=== PATIENT | male | born 1965 | race Caucasian/White ===

== ENCOUNTER 2024-01-01 19:23 | Observation (INO) | payer MEDICARE, OTHER ==
--- NOTE | 2024-01-01 19:37 | ED ---
General Adult HPI - General Chief complaint: Overdose Stated complaint: Mental Health Time Seen by Provider: 01/01/24 19:28 Source: patient, RN/MD, RN notes reviewed Mode of arrival: EMS Limitations: no limitations - History of Present Illness Initial comments: Patient is a 58-year-old male presenting to the emergency department with Ambien overdose. Patient states within the past hour he took around 10 Ambien. Patient states these are 5 mg Ambien and does have this bottle with him. Patient states he does not feel the effects have started kicking in on him yet. Patient admits to being depressed and taking extra medications in order to harm himself. No homicidal thoughts. No hallucinations. No new physical complaints. Patient denies alcohol use. - Related Data Home Medications Medication Instructions Recorded Confirmed Esomeprazole Magnesium [NexIUM] 40 mg PO DAILY 01/01/24 01/01/24 FLUoxetine HCL [PROzac] 40 mg PO DAILY 01/01/24 01/01/24 HYDROcodone/APAP 5-325MG [Emery 1 tab PO TID PRN 01/01/24 01/01/24 5-325] Ibuprofen [Motrin] 800 mg PO BID PRN 01/01/24 01/01/24 Nicotine Gum (Polacrilex) 2 mg BUCCAL Q2H PRN 01/01/24 01/01/24 [Nicorette] OLANZapine [ZyPREXA] 10 mg PO HS 01/01/24 01/01/24 OXcarbazepine [Trileptal] 300 mg PO BID 01/01/24 01/01/24 Prazosin [Minipress] 3 mg PO HS 01/01/24 01/01/24 Zolpidem Tartrate [Ambien] 5 mg PO HS 01/01/24 01/01/24 buPROPion XL [Wellbutrin XL] 150 mg PO DAILY 01/01/24 01/01/24 lisinopriL [Zestril] 10 mg PO DAILY 01/01/24 01/01/24 Allergies Allergy/AdvReac Type Severity Reaction Status Date / Time butorphanol [From Stadol] Allergy Confusion Verified 01/01/24 20:04 ketorolac [From Toradol] Allergy Unknown Verified 01/01/24 20:04 levofloxacin [From Levaquin] Allergy Vomiting Verified 01/01/24 20:04 Sulfa (Sulfonamide Allergy Nausea Verified 01/01/24 20:04 Antibiotics) Review of Systems ROS Statement: Those systems with pertinent positive or pertinent negative responses have been documented in the HPI. ROS Other: All systems not noted in ROS Statement are negative. Constitutional: Denies: fever Eyes: Denies: eye pain ENT: Denies: ear pain Respiratory: Denies: cough, dyspnea Cardiovascular: Denies: chest pain Endocrine: Denies: fatigue Gastrointestinal: Denies: nausea Genitourinary: Denies: dysuria Psychiatric: Reports: depression, suicidal thoughts. Denies: auditory hallucinations, visual hallucinations, homicidal thoughts Past Medical History Past Medical History: Cancer, COPD, Hypertension Additional Past Medical History / Comment(s): Bladder CA 2011,prostate CA 2010 Past Surgical History: Prostate Surgery Past Psychological History: Bipolar, Depression, PTSD Smoking Status: Current every day smoker Past Alcohol Use History: None Reported Past Drug Use History: Methamphetamine General Exam Limitations: no limitations General appearance: alert, in no apparent distress Head exam: Present: normocephalic Eye exam: Present: normal appearance, PERRL, EOMI, nystagmus ENT exam: Present: normal oropharynx Respiratory exam: Present: normal lung sounds bilaterally Cardiovascular Exam: Present: regular rate, normal rhythm GI/Abdominal exam: Present: soft. Absent: tenderness Extremities exam: Present: normal inspection Neurological exam: Present: alert, oriented X3, CN II-XII intact. Absent: motor sensory deficit Psychiatric exam: Present: flat affect Skin exam: Present: normal color Course Vital Signs 01/01/24 19:24 Temperature 98.8 F Pulse Rate 102 H Respiratory 18 Rate Blood Pressure 126/38 O2 Sat by Pulse 95 Oximetry EKG Findings - EKG Results: EKG: interpreted by ERMD, sinus rhythm, normal axis, normal QRS, normal ST/T Medical Decision Making - Medical Decision Making Was pt. sent in by a medical professional or institution (, PA, CHURCH COMMUNICATIONS ADMINISTRATOR, urgent care, hospital, or senior care...) When possible be specific @ -No Did you speak to anyone other than the patient for history (EMS, parent, family, police, friend...)? What history was obtained from this source @ -EMS Did you review nursing and triage notes (agree or disagree)? Why? @ -I reviewed and agree with nursing and triage notes Were old charts reviewed (outside hosp., previous admission, EMS record, old EKG, old radiological studies, urgent care reports/EKG's, senior care records)? Report findings @ -No old charts were reviewed Differential Diagnosis (chest pain, altered mental status, abdominal pain women, abdominal pain men, vaginal bleeding, weakness, fever, dyspnea, syncope, headache, dizziness, GI bleed, back pain, seizure, CVA, palpatations, mental health, musculoskeletal)? @ -Differential Mental Health Depression, anxiety, bipolar, psychosis, schizophrenia, borderline personality, situational depression, adjustment disorder, behavioral disorder, brain tumor, malingering, substance abuse, encephalopathy, medication reaction, dementia, hypothyroidism, degenerative neurologic disorder, lupus.... This is not meant to be all-inclusive list EKG interpreted by me (3pts min.). @ -As above X-rays interpreted by me (1pt min.). @ -None done CT interpreted by me (1pt min.). @ -None done U/S interpreted by me (1pt. min.). @ -None done What testing was considered but not performed or refused? (CT, X-rays, U/S, labs)? Why? @ -None What meds were considered but not given or refused? Why? @ -None Did you discuss the management of the patient with other professionals (professionals i.e. , PA, CHUR[employer] COMMUNICATIONS ADMINISTRATOR, lab, RT, psych nurse, family welfare social work professor, recoating machine operator, teacher, real estate officer, caser up)? Give summary @ -Practitioner Kaleigh covering Dr. Araujo, who will admit covering With Was smoking cessation discussed for >3mins.? @ -No Was critical care preformed (if so, how long)? @ -No Were there social determinants of health that impacted care today? How? (Homelessness, low income, unemployed, alcoholism, drug addiction, transportation, low edu. Level, literacy, decrease access to med. care, retirement, rehab)? @ -No Was there de-escalation of care discussed even if they declined (Discuss DNR or withdrawal of care, Hospice)? DNR status @ -No What co-morbidities impacted this encounter? (DM, HTN, Smoking, COPD, CAD, Cancer, CVA, ARF, Chemo, Hep., AIDS, mental health diagnosis, sleep apnea, morbid obesity)? @ -None Was patient admitted / discharged? Hospital course, mention meds given and route, prescriptions, significant lab abnormalities, going to OR and other pertinent info. @ -Patient presents with Ambien overdose. Patient has nystagmus. On reevaluation continue nystagmus. Patient is feeling drowsy. Patient will be held for observation to the night pending psychiatric consult. Undiagnosed new problem with uncertain prognosis? @ -No Drug Therapy requiring intensive monitoring for toxicity (Heparin, Nitro, Insulin, Cardizem)? @ -No Were any procedures done? @ -No Diagnosis/symptom? @ -Ambien overdose Acute, or Chronic, or Acute on Chronic? @ -Acute Uncomplicated (without systemic symptoms) or Complicated (systemic symptoms)? @ -Default Side effects of treatment? @ -No Exacerbation, Progression, or Severe Exacerbation? @ -No Poses a threat to life or bodily function? How? (Chest pain, USA, CT, pneumonia, PE, COPD, DKA, ARF, appy, cholecystitis, CVA, Diverticulitis, Homicidal, Suicidal, threat to staff... and all critical care pts) @ -No - Lab Data Result diagrams: 01/01/24 19:37 Lab Results 01/01/24 Range/Units 19:37 Sodium 138 (137-145) mmol/L Potassium 4.0 (3.5-5.1) mmol/L Chloride 105 (98-107) mmol/L Carbon Dioxide 24 (22-30) mmol/L Anion Gap 9 mmol/L BUN 17 (9-20) mg/dL Creatinine 0.85 (0.66-1.25) mg/dL Est GFR (CKD-EPI)AfAm >90 (>60 ml/min/1.73 sqM) Est GFR (CKD-EPI)NonAf >90 (>60 ml/min/1.73 sqM) Glucose 81 (74-99) mg/dL Calcium 9.2 (8.4-10.2) mg/dL Total Bilirubin 0.6 (0.2-1.3) mg/dL AST 23 (17-59) U/L ALT 17 (4-49) U/L Alkaline Phosphatase 62 (38-126) U/L Total Protein 7.0 (6.3-8.2) g/dL Albumin 4.6 (3.5-5.0) g/dL Salicylates <1.0 mg/dL Acetaminophen <10.0 ug/mL Serum Alcohol <10 mg/dL Disposition Clinical Impression: Intentional overdose Disposition: ADMITTED IP TO THIS HOSP Is patient prescribed a controlled substance at d/c from ED?: No Referrals: Ronnie Miranda MD [Primary Care Provider] - 1-2 days Time of Disposition: 20:54
[2024-01-01 20:08] LABS: HGB 16.8 gm/dL (13.0-17.5); MCH 30.1 pg (25.0-35.0); MCHC 33.6 g/dL (31.0-37.0); MCV 89.6 fL (80.0-100.0); Mean Platelet Volume 6.8; Platelet Count 322 k/uL (150-450); RBC 5.58 m/uL (4.30-5.90); RDW 12.8 % (11.5-15.5); WBC 13.5 k/uL (3.8-10.6)
[2024-01-01 20:10] LABS: ALT 17 U/L (4-49); AST 23 U/L (17-59); Acetaminophen <10.0 ug/mL; African American GFR (CKD) >90 (>60 ml/min/1.73 sqM); Albumin 4.6 g/dL (3.5-5.0); Alcohol <10 mg/dL; Alkaline Phosphatase 62 U/L (38-126); Anion Gap 9 mmol/L; Blood Urea Nitrogen 17 mg/dL (9-20); Calcium 9.2 mg/dL (8.4-10.2); Carbon Dioxide 24 mmol/L (22-30); Chloride 105 mmol/L (98-107); Glucose 81 mg/dL (74-99); Non-African American GFR(CKD) >90 (>60 ml/min/1.73 sqM); Salicylate <1.0 mg/dL; Sodium 138 mmol/L (137-145); Total Bilirubin 0.6 mg/dL (0.2-1.3)
[2024-01-01] MEDS ORDERED: IBUPROFEN 800 MG TAB PO PRN (20:51)
[2024-01-01] MEDS ORDERED: NICOTINE GUM (POLACRILEX) 2 MG GUM BUCCAL PRN (20:51)
[2024-01-01] MEDS ORDERED: NALOXONE 0.4 MG/ML 1 ML VIAL IV PRN (20:54)
[2024-01-01 21:23] LABS: Basophils # (M) 0.14 k/uL (0-0.2); Eosinophils # (M) 0.14 k/uL (0-0.7); Monocytes # (M) 0.41 k/uL (0-1.0); Neutrophils # (M) 10.13 k/uL (1.3-7.7); Neutrophils % (M) 75 %; Nucleated Red Blood Cells 0 /100 WBC (0-0); Total Cells Counted 100
[2024-01-01 21:24] LABS: RBC Morphology Normal
[2024-01-01] MEDS: OLANZapine 10 MG TAB PO SCH (21:29)
[2024-01-01] MEDS: PRAZOSIN 1 MG CAP PO SCH (21:29)
[2024-01-01] MEDS: OXcarbazepine 300 MG TAB PO SCH (21:29)
[2024-01-01 22:09] LABS: Amphetamine Screen,Urine Not Detected (NotDetected); Barbiturate Screen,Urine Not Detected (NotDetected); Benzodiazepines Screen,Urine Detected (NotDetected); Cocaine Screen,Urine Not Detected (NotDetected); Methadone Screen, Urine Not Detected (NotDetected); Opiate Screen,Urine Detected (NotDetected); Oxycodone Screen, Urine Not Detected (NotDetected); Phencyclidine Screen,Urine Not Detected (NotDetected); Tricyclic Antidepressant,Urine Not Detected (NotDetected); Urn Cannabinoid Scrn Not Detected (NotDetected)
[2024-01-02] MEDS: buPROPion XL 150 MG TAB.ER.24H PO SCH (09:55)
[2024-01-02] MEDS: FLUoxetine HCL 20 MG CAP PO SCH (09:55)
[2024-01-02] MEDS: PANTOPRAZOLE 40 MG TABLET PO SCH (09:55)
[2024-01-02] MEDS: lisinopriL 10 MG TAB PO SCH (09:56)
--- NOTE | 2024-01-02 13:30 | P.CN ---
Psychiatric Consult - . Consult date: 01/02/24 Consult:: 01/02/24 12:57 IDENTIFYING DATA: This patient is a 58-year-old male, currently , unemployed collecting Social Security disability lives in an apartment. No kids. REASON FOR REFERRAL: Psychiatry was consulted for overdose of medications HISTORY OF PRESENT ILLNESS: The patient presented to the hospital initially on 12/31 to the ER after an Ambien overdose. Patient apparently took 10 tablets of Ambien at once in a suicide attempt, was endorsing that he was depressed and admitted to it being a suicide attempt. Urine drug screen is positive for opiates and benzodiazepines. Patient was seen laying in the bed and agreeable to speak to selling underwriter. He had a one-to-one sitter at his side. Patient claims that he has been feeling more depressed for "months" and states that he has a history of bipolar disorder. He also claims that he is on disability. He states that he has been living alone and feels very "lonely" and also states that he is feeling bored, endorses elevated anxiety at this time. He was fairly concrete, evasive about his condition. States that the overdose was a suicide attempt and claims that after he took it he laid down and his cousin called him and he told him what he did and then the cousin called EMS to bring him to the hospital. Patient denies any paranoia at this time, denies any problems with sleep states that his appetite is on and off. At this time patient denies any current suicidal or homical ideations, intent or plan. Patient denies any auditory, visual hallucinations and denies any paranoia or delusions. Patients admits to using cigarettes only, denies any other recreational drug use. PAST PSYCHIATRIC HISTORY: Patient has a a history of reported bipolar disorder. He claims that he is currently on Prozac, Zyprexa, Trileptal, Minipress, Wellbutrin, Ambien. He states that he was psychiatrically hospitalized in [place] about a year ago. He currently follows up with Dr. Steiner at [facility]. He claims that he overdosed on medications about a year ago. Past Medical History: Cancer, COPD, Hypertension Additional Past Medical History / Comment(s): Bladder CA 2011,prostate CA 2010 Past Surgical History: Prostate Surgery Past Psychological History: Bipolar, Depression, PTSD Smoking Status: Current every day smoker Past Alcohol Use History: None Reported Past Drug Use History: Methamphetamine ALLERGIES: as per EMR. CHEMICAL DEPENDENCY HISTORY: as per HPI. FAMILY PSYCHIATRIC/SUBSTANCE USE HISTORY: Claims that his mother has depression and anxiety SOCIAL HISTORY: Patient was born and raised in [place], claims that he was previously living in [place] and recently moved up to [place]. States that he is currently on SSD, he is unemployed, he has no kids, he lives in an apartment alone. 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 Claims that he was in correction and also detention in the past for drug-related charges. MENTAL STATUS EXAM: General Appearance: Patient appears to be have several tattoos, stated age is alert, evasive and guarded. Patient appears to have fair hygiene and grooming wearing hospital gown with fair eye contact. Behavior: Patient is calmly lying in bed without any agitated behavior. Evasive. Guarded. Speech: Patient's speech is fluent and nonpressured. [place] Mood/Affect: Patient reports their mood is "depressed and anxious", affect is congruent Suicidality/Homicidality: Patient denies having any suicidal or homicidal ideation intent or plan. Perceptions: Patient denies any visual hallucinations and denies any auditory hallucinations Though content/process: There is no evidence of any delusional thought content a nd thought process is linear and goal-directed. Evasive, minimizing Memory and concentration: AOX3, grossly intact for the purposes of this session. Can spell "WORLD" backwards Judgment and insight: Poor IMPRESSIONS: Depressive disorder unspecified, rule out bipolar depression Suicide attempt by overdose of psychotropic medications Nicotine dependence PLAN: -At this time patient DOES meet criteria for inpatient psychiatric admission. -Would recommend the following medication changes/additions: Continue with current medications as prescribed -Continue 1:1 sitter for safety -Cannot leave AMA at this time. Patient will need a petition and certification if attempting to leave AMA. -When medically stable, patient is eligible for transfer to a psych bed when available. -Communicated plan to patient's nurse -Psychiatry will sign off at this time -Please contact with any questions. 01/02/24 13:25
[2024-01-02] MEDS: HYDROcodone/APAP 5-325MG 1 EACH TAB PO PRN (22:50)
[2024-01-02] MEDS: ONDANSETRON 4 MG/2 ML VIAL IVP PRN (22:50)
--- NOTE | 2024-01-03 00:36 | HP ---
HISTORY AND PHYSICAL CHIEF COMPLAINT: Ambien overdose. HISTORY OF PRESENT ILLNESS: This is first known admission for this 58-year-old white male. He became depressed and was contemplating suicide and overdosed on Ambien. REVIEW OF SYSTEMS: At the present time, he has no complaints. He has had no headaches, shortness of breath, abdominal pain, nausea, etc. PAST MEDICAL HISTORY, FAMILY HISTORY, AND PERSONAL HISTORY: Reveal that he is being treated for hypertension, depression, and COPD. MEDICATIONS: 1. Lisinopril 10 mg once a day. 2. Ibuprofen 800 mg q.i.d. p.r.n. 3. Oxcarbazepine 300 mg once a day. 4. Bupropion 150 twice a day. 5. Prozac 40 mg once a day. 6. Vicodin p.r.n. 7. Zyprexa 10 mg h.s. 8. Prazosin 2 mg h.s. 9. Nexium. SOCIAL HISTORY: He does continue to smoke, but he does not drink. PHYSICAL EXAMINATION: VITAL SIGNS: Normal. HEENT: Head, ears, eyes, nose, mouth, and throat are normal. NECK: Veins are not distended. CHEST: Clear. CARDIAC: Normal. ABDOMEN: Soft and nontender. EXTREMITIES: Normal. NEUROLOGIC: He is intact, but lethargic. DIAGNOSES: He is admitted to the hospital with diagnoses, 1. Ambien overdose. 2. Depression. 3. History of hypertension. 4. Gastroesophageal reflux disease. PLAN: 1. Bedrest. 2. IV fluids. 3. Suicide precautions. 4. Psychiatry consult. MMSHAUN / BRENDA: [id number] /
--- NOTE | 2024-01-03 04:18 | PN ---
PROGRESS NOTE DATE OF SERVICE: 01/02/2024 CHIEF COMPLAINT: Depression, suicide attempt, and Ambien overdose. HISTORY OF PRESENT ILLNESS: This gentleman is still slightly groggy and awaits a bed after which he will be seen in suicide precautions by Psychiatry. PHYSICAL EXAMINATION: VITAL SIGNS: Normal. CHEST: Clear. CARDIAC: Normal. IMPRESSION: Major depression with Ambien overdose. PLAN: Suicide precautions and psych consult. MMODL / IJN: [id number] /
[2024-01-05 02:35] VITALS: TEMP 97.7
[2024-01-05 08:11] VITALS: BP 122/83; PULSE 63; RESP 18
--- NOTE | 2024-01-06 00:42 | DS ---
DISCHARGE SUMMARY CHIEF COMPLAINT: Ambien overdose. HISTORY OF PRESENT ILLNESS AND PHYSICAL EXAMINATION: Details of this man's history and physical can be found in the initial workup. LABORATORY STUDIES: While he is in the hospital, he had laboratory studies, details of which can be found in the laboratory section of his chart. COURSE IN THE HOSPITAL: After admission, he was placed on bedrest, started intravenous fluids and suicide precautions. He was seen by Psychiatry. Once he was stable, they felt he should be transferred to the inpatient psych unit. This was done on the . FINAL DIAGNOSES: 1. Ambien overdose. 2. Major depression with suicidal thoughts. OPERATIONS: None. CONSULTATIONS: Psychiatry. MMODL / IJN: [id number] /
--- NOTE | 2024-01-06 01:49 | PN ---
PROGRESS NOTE DATE OF SERVICE: 01/03/2024 CHIEF COMPLAINT: Major depression and suicidal attempt by Ambien overdose. HISTORY OF PRESENT ILLNESS: This gentleman is awake and alert and stable. He is being followed by Psychiatry. PHYSICAL EXAMINATION: CHEST: Clear. CARDIAC: Normal. ABDOMEN: Soft, nontender. IMPRESSION: Major depression with suicidal attempt. PLAN: No change in program and await recommendations from Psychiatry. MMODL / IJN: [id number] /
--- NOTE | 2024-01-06 01:57 | PN ---
PROGRESS NOTE DATE OF SERVICE: 01/04/2024 CHIEF COMPLAINT: Major depression. HISTORY OF PRESENT ILLNESS: This gentleman is doing well and it was felt that he could be discharged, but Psychiatry feels that he should be moved to inpatient unit and this will be done. PHYSICAL EXAMINATION: VITAL SIGNS: Normal. GENERAL: He is awake and alert. CHEST: Clear. CARDIAC: Normal. IMPRESSION: Major depression with suicide attempt by alcohol overdose. PLAN: Cancel discharge and probably move to the psych unit tomorrow. MMODL / IJN: [id number] /
== END 2024-01-05 15:53 ==
LOC: EC 19:23 → 6NMEDSUR 20:55 → 4SSUR 01-02 05:07
PROVIDERS: ADMIT Family Medicine; ATTEND Family Medicine
DX: T42.6X2A Poisoning by other antiepileptic and sedative-hypnotic drugs, intentional self-harm, initial encounter (principal); F31.9 Bipolar disorder, unspecified; F41.9 Anxiety disorder, unspecified; H55.00 Unspecified nystagmus; I10 Essential (primary) hypertension; J44.9 Chronic obstructive pulmonary disease, unspecified; K21.9 Gastro-esophageal reflux disease without esophagitis; F17.210 Nicotine dependence, cigarettes, uncomplicated; Z79.899 Other long term (current) drug therapy; Z88.1 Allergy status to other antibiotic agents; Z88.2 Allergy status to sulfonamides; Z88.5 Allergy status to narcotic agent; Z91.51 Personal history of suicidal behavior; Z60.2 Problems related to living alone
CPT/HCPCS: 96376 ×2; 96374; 82075; 99285; 36415; 93005; 80053; 80183; 85025; 80306; 80143; 87635; 80179; G0378 ×6; G0480; J2405 ×3; 80320

== ENCOUNTER 2024-01-05 12:42 | Inpatient (IN) | payer MEDICARE, MEDICAID ==
[2024-01-05] MEDS ORDERED: ONDANSETRON ODT 4 MG TAB PO PRN (13:37)
[2024-01-05] MEDS ORDERED: MAGNESIUM HYDROXIDE 2,400 MG/30 ML CUP PO PRN (13:38)
[2024-01-05] MEDS ORDERED: haloperidoL 5 MG TAB PO PRN (13:38)
[2024-01-05] MEDS ORDERED: MAG HYDROX/AL HYDROX/SIMETH 355 ML BOTTLE PO PRN (13:38)
[2024-01-05] MEDS ORDERED: LORazepam 2 MG/ML INJ IM PRN (13:38)
[2024-01-05] MEDS ORDERED: HALOPERIDOL LACTATE 5 MG/ML 1 ML VIAL IM PRN (13:38)
[2024-01-05] MEDS ORDERED: NICOTINE GUM (POLACRILEX) 2 MG GUM BUCCAL PRN (13:41)
[2024-01-05] MEDS: OLANZapine 10 MG TAB PO SCH (20:02)
[2024-01-05] MEDS: PRAZOSIN 1 MG CAP PO SCH (20:02)
[2024-01-05] MEDS: HYDROcodone/APAP 5-325MG 1 EACH TAB PO PRN (20:03)
[2024-01-06 08:26] LABS: ALT 15 U/L (4-49); AST 23 U/L (17-59); African American GFR (CKD) >90 (>60 ml/min/1.73 sqM); Albumin 4.4 g/dL (3.5-5.0); Alkaline Phosphatase 56 U/L (38-126); Anion Gap 5 mmol/L; Blood Urea Nitrogen 15 mg/dL (9-20); Calcium 9.7 mg/dL (8.4-10.2); Carbon Dioxide 31 mmol/L (22-30); Chloride 97 mmol/L (98-107); Glucose 94 mg/dL (74-99); HGB 15.5 gm/dL (13.0-17.5); MCH 29.9 pg (25.0-35.0); MCHC 32.9 g/dL (31.0-37.0); MCV 90.9 fL (80.0-100.0); Mean Platelet Volume 6.4; Non-African American GFR(CKD) 81 (>60 ml/min/1.73 sqM); Platelet Count 253 k/uL (150-450); Potassium 4.4 mmol/L (3.5-5.1); RBC 5.17 m/uL (4.30-5.90); RDW 12.3 % (11.5-15.5); Sodium 133 mmol/L (137-145); Total Bilirubin 0.8 mg/dL (0.2-1.3); Total Protein 6.6 g/dL (6.3-8.2); WBC 7.8 k/uL (3.8-10.6)
[2024-01-06] MEDS: PANTOPRAZOLE 40 MG TABLET PO SCH (08:31)
[2024-01-06] MEDS: FLUoxetine HCL 20 MG CAP PO SCH (08:31)
[2024-01-06] MEDS: lisinopriL 10 MG TAB PO SCH (08:31)
[2024-01-06] MEDS: PNEUMOCOCCAL VACC-PREVNAR-20 0.5 ML SYR IM ONE (09:45)
[2024-01-06 11:15] LABS: Chol/HDL Ratio 2.54 Ratio; LDL Cholesterol,Calculated 78.4 mg/dL (0.0-131.0)
[2024-01-06 11:47] LABS: Eosinophils # (M) 0.08 k/uL (0-0.7); Lymphocytes # (M) 1.64 k/uL (1.0-4.8); Monocytes # (M) 0.39 k/uL (0-1.0); Neutrophils # (M) 5.69 k/uL (1.3-7.7); Neutrophils % (M) 73 %; Nucleated Red Blood Cells 0 /100 WBC (0-0); Total Cells Counted 100
[2024-01-06 11:48] LABS: RBC Morphology Normal
--- NOTE | 2024-01-06 11:50 | P.HP ---
Psychiatric H&P - . H&P Date: 01/06/24 History & Physical: Allergies Allergy/AdvReac Type Severity Reaction Status Date / Time butorphanol from Stadol Allergy Confusion Verified 01/01/24 20:04 ketorolac from Toradol Allergy Unknown Verified 01/01/24 20:04 levofloxacin from Levaquin Allergy Vomiting Verified 01/01/24 20:04 Sulfa (Sulfonamide Allergy Nausea Verified 01/01/24 20:04 Antibiotics) Vital Signs Temp 95.9 F L 01/06/24 06:30 Pulse 107 H 01/06/24 08:30 Resp 16 01/06/24 06:30 BP 133/76 01/06/24 08:30 Pulse Ox 96 01/05/24 16:21 FiO2 Intake & Output 01/05/24 01/06/24 01/06/24 18:59 06:59 18:59 Weight 86.954 kg Laboratory Last Values WBC 7.8 k/uL (3.8-10.6) 01/06/24 07:51 RBC 5.17 m/uL (4.30-5.90) 01/06/24 07:51 Hgb 15.5 gm/dL (13.0-17.5) 01/06/24 07:51 Hct 47.0 % (39.0-53.0) 01/06/24 07:51 MCV 90.9 fL (80.0-100.0) 01/06/24 07:51 MCH 29.9 pg (25.0-35.0) 01/06/24 07:51 MCHC 32.9 g/dL (31.0-37.0) 01/06/24 07:51 RDW 12.3 % (11.5-15.5) 01/06/24 07:51 Plt Count 253 k/uL (150-450) 01/06/24 07:51 MPV 6.4 01/06/24 07:51 Sodium 133 mmol/L (137-145) L 01/06/24 07:51 Potassium 4.4 mmol/L (3.5-5.1) 01/06/24 07:51 Chloride 97 mmol/L (98-107) L 01/06/24 07:51 Carbon Dioxide 31 mmol/L (22-30) H 01/06/24 07:51 Anion Gap 5 mmol/L 01/06/24 07:51 BUN 15 mg/dL (9-20) 01/06/24 07:51 Creatinine 1.02 mg/dL (0.66-1.25) 01/06/24 07:51 Est GFR (CKD-EPI)AfAm >90 (>60 ml/min/1.73 sqM) 01/06/24 07:51 Est GFR (CKD-EPI)NonAf 81 (>60 ml/min/1.73 sqM) 01/06/24 07:51 Glucose 94 mg/dL (74-99) 01/06/24 07:51 Calcium 9.7 mg/dL (8.4-10.2) 01/06/24 07:51 Total Bilirubin 0.8 mg/dL (0.2-1.3) 01/06/24 07:51 AST 23 U/L (17-59) 01/06/24 07:51 ALT 15 U/L (4-49) 01/06/24 07:51 Alkaline Phosphatase 56 U/L (38-126) 01/06/24 07:51 Total Protein 6.6 g/dL (6.3-8.2) 01/06/24 07:51 Albumin 4.4 g/dL (3.5-5.0) 01/06/24 07:51 TSH 0.663 mIU/L (0.465-4.680) 01/06/24 07:51 01/06/24 09:01 IDENTIFYING DATA: Patient is a This patient is a 58-year-old male, currently , unemployed collecting Social Security disability lives in an apartment. No kids. HPI: The patient presented to the hospital initially on 12/31 to the ER after an Ambien overdose. Patient apparently took 10 tablets of Ambien at once in a suicide attempt, was endorsing that he was depressed and admitted to it being a suicide attempt. Urine drug screen is positive for opiates and benzodiazepines. Patient was seen as a consult on the medical floor. As per consult note by keno writer / runner, "Patient was seen laying in the bed and agreeable to speak to keno writer / runner. He had a one-to-one sitter at his side. Patient claims that he has been feeling more depressed for "months" and states that he has a history of bipolar disorder. He also claims that he is on disability. He states that he has been living alone and feels very "lonely" and also states that he is feeling bored, endorses elevated anxiety at this time. He was fairly concrete, evasive about his condition. States that the overdose was a suicide attempt and claims that after he took it he laid down and his cousin called him and he told him what he did and then the cousin called EMS to bring him to the hospital. Patient denies any paranoia at this time, denies any problems with sleep states that his appetite is on and off. At this time patient denies any current suicidal or homicidal ideations, intent or plan. Patient denies any auditory, visual hallucinations and denies any paranoia or delusions. Patients admits to using cigarettes only, denies any other recreational drug use." Upon todays assessment, patient states that he is somewhat better. He states that his sleep is not the greatest. continues to be fairly concrete and superficial about his treatment. was agreeable to have his meds adjusted. His mood is still not great, and he is not endorsing any anxiety. He states that his appetite is fair. At this time he is denying any suicidal or homicidal ideations intent or plan. Claims that the auditory hallucinations have been improving. Denies any visual hallucinations. PAST PSYCHIATRIC HISTORY: Patient has a a history of reported bipolar disorder. He claims that he is currently on Prozac, Zyprexa, Trileptal, Minipress, Wellbutrin, Ambien. He states that he was psychiatrically hospitalized in [place] about a year ago. He currently follows up with Dr. Steiner at [facility]. He claims that he overdosed on medications about a year ago. PMH:As per ER note ALLERGIES: as per EMR CHEMICAL DEPENDENCY HISTORY: as per HPI FAMILY PSYCHIATRIC/SUBSTANCE USE HISTORY: Claims that his mother has depression and anxiety SOCIAL HISTORY: Patient was born and raised in [place], claims that he was previously living in [place] and recently moved up to [place]. States that he is currently on SSD, he is unemployed, he has no kids, he lives in an apartment alone. 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 Claims that he was in nursing home and also detention in the past for drug-related charges. MENTAL STATUS EXAM: General Appearance: Patient appears to be have several tattoos, stated age is alert, evasive and guarded. Patient appears to have fair hygiene and grooming wearing his own clothes, with fair eye contact. Behavior: Patient is calmly lying in bed without any agitated behavior. Evasive. Guarded. Superficial Speech: Patient's speech is fluent and nonpressured. [place] Mood/Affect: Patient reports their mood is "depressed", affect is congruent Suicidality/Homicidality: Patient denies having any suicidal or homicidal ideation intent or plan. Perceptions: Patient denies any visual hallucinations and denies any auditory hallucinations Though content/process: There is no evidence of any delusional thought content and thought process is linear and goal-directed. Evasive, minimizing Memory and concentration: AOX3, grossly intact for the purposes of this session. Can spell "WORLD" backwards Judgment and insight: Poor IMPRESSIONS: bipolar disorder, depression Suicide attempt by overdose of psychotropic medications History of PTSD Nicotine dependence STRENGTHS/WEAKNESSES: strength is that patient is resilient. Weakness is that patient has poor judgment and is impulsive INTELLECT: average PLAN: -Patient is admitted under voluntary status to MHU for stabilization of psychiatric symptoms and safety. Patient has signed adult voluntary form and medication consent and is placed in patient's chart. -Medications : increase Prozac 60mg daily for mood and anxiety, Zyprexa 10mg po qhs for low mood/anxiety, minipress 3mg po qhs for nightmares -Ativan and Haldol PRN for agitation/aggression -Patient was informed of the risks, benefits and side effects of the medication and patient verbally consented to taking the medications. -Internal Medicine consult to perform medical evaluation and physical. -NRT -nicotine patch - on board for discharge planning. Encourage patient to participate in groups to work on coping skills. 01/06/24 11:33 01/06/24 11:48
[2024-01-06] MEDS: IBUPROFEN 800 MG TAB PO PRN (21:01)
[2024-01-06] MEDS: ACETAMINOPHEN TAB 325 MG TAB PO PRN (21:02)
--- NOTE | 2024-01-07 08:18 | P.PN ---
Subjective Progress Note Date: 01/07/24 Principal diagnosis: IMPRESSIONS: bipolar disorder, depression Suicide attempt by overdose of psychotropic medications History of PTSD Nicotine dependence atient Name: Mesfin Ge Date of : 1965 Patient Status: Inpatient Attending Provider: Negro Bartholomew Date: 01/07/24 Initialization Date: 01/06/24 09:01 Subjective data: The patient was seen chart was reviewed and case discussed with nursing staff Patient remains severely superficial and vague historian He states that everything is fine and that he is feeling a lot better He denies that he is having any problems or issues and that he is ready to go home anytime Patient is not very forthcoming and does not give much of any information Following information was reviewed in the chart which is included here for completeness: The patient presented to the hospital initially on 12/31 to the ER after an Ambien overdose. Patient apparently took 10 tablets of Ambien at once in a suicide attempt, was endorsing that he was depressed and admitted to it being a suicide attempt. Urine drug screen is positive for opiates and benzodiazepines . Patient was seen as a consult on the medical floor. Patient claims that he has been feeling more depressed for "months" and states that he has a history of bipolar disorder. He also claims that he is on disability. MENTAL STATUS EXAM: General Appearance: Patient appears to be have several tattoos, stated age is alert, evasive and guarded. Patient appears to have fair hygiene and grooming wearing his own clothes, Behavior: Patient is calmly lying in bed without any agitated behavior. Evasive. Guarded. Superficial Speech: Patient's speech is fluent and nonpressured. [place] Mood/Affect: Patient reports their mood is "good, affect is congruent Suicidality/Homicidality: Patient denies having any suicidal or homicidal ideation intent or plan. Perceptions: Patient denies any visual hallucinations and denies any auditory hallucinations Though content/process: There is no evidence of any delusional thought content and thought process is linear and goal-directed. Evasive, minimizing Memory and concentration: AOX3, grossly intact for the purposes of this session. Can spell "WORLD" backwards Judgment and insight: Poor IMPRESSIONS: bipolar disorder, depression Suicide attempt by overdose of psychotropic medications History of PTSD Nicotine dependence STRENGTHS/WEAKNESSES: strength is that patient is resilient. Weakness is that patient has poor judgment and is impulsive INTELLECT: average PLAN: Agree with Dr. bartholomew treatment plan -Patient is admitted under voluntary status to MHU for stabilization of psychiatric symptoms and safety. Patient has signed adult voluntary form and medication consent and is placed in patient's chart. -Medications : Prozac 60mg daily for mood and anxiety, Zyprexa 10mg po qhs for low mood/anxiety, minipress 3mg po qhs for nightmares -Ativan and Haldol PRN for agitation/aggression -Patient was informed of the risks, benefits and side effects of the medication and patient verbally consented to taking the medications. -Internal Medicine consult to perform medical evaluation and physical. -NRT -nicotine patch -SW on board for discharge planning. Encourage patient to participate in groups to work on coping skills. Miguel Dupont MD Objective - Vital Signs Vital signs: Vital Signs Temp 95.9 F L 01/06/24 06:30 Pulse 99 01/07/24 06:38 Resp 16 01/06/24 06:30 BP 120/82 01/07/24 06:38 Pulse Ox 96 01/05/24 16:21 FiO2 - Labs CBC & Chem 7: 01/06/24 07:51 01/06/24 07:51 Labs: Abnormal Lab Results - Last 24 Hours (Table) 01/06/24 Range/Units 07:51 Sodium 133 L (137-145) mmol/L Chloride 97 L (98-107) mmol/L Carbon Dioxide 31 H (22-30) mmol/L HDL Cholesterol 68.20 H (40.00-60.00) mg/dL
[2024-01-07] MEDS: FLUoxetine HCL 20 MG CAP PO SCH (08:33)
[2024-01-07 14:27] VITALS: BMI 25.9
[2024-01-07] MEDS: LORazepam 1 MG TAB PO PRN (22:43)
--- NOTE | 2024-01-08 09:10 | P.PN ---
Subjective Progress Note Date: 01/08/24 Principal diagnosis: IMPRESSIONS: bipolar disorder, depression Suicide attempt by overdose of psychotropic medications History of PTSD Nicotine dependence atient Name: Mesfin Ge Date of : 1965 Patient Status: Inpatient Attending Provider: Negro Bartholomew Date: 01/08/24 Initialization Date: 01/06/24 09:01 Subjective data: Today's interview was not much different than the previous day Patient has much difficulty building a rapport and remains amotivated with any verbalization or give any specific details He reports that he is living with his cousin and that he is planning to go back to stay with him And reports that things are better The patient was seen chart was reviewed and case discussed with nursing staff Patient remains severely superficial and vague historian He states that everything is fine and that he is feeling a lot better Patient is not very forthcoming and does not give much of any information Following information was reviewed in the chart which is included here for completeness: The patient presented to the hospital initially on 12/31 to the ER after an Ambien overdose. Patient apparently took 10 tablets of Ambien at once in a suicide attempt, was endorsing that he was depressed and admitted to it being a suicide attempt. Urine drug screen is positive for opiates and benzodiazepines . Patient was seen as a consult on the medical floor. Patient claims that he has been feeling more depressed for "months" and states that he has a history of bipolar disorder. He also claims that he is on disability. MENTAL STATUS EXAM: General Appearance: Patient appears to be have several tattoos, stated age is alert, evasive and guarded. Patient appears to have fair hygiene and grooming wearing his own clothes, Behavior: Patient is calmly lying in bed without any agitated behavior. Evasive. Guarded. Superficial Speech: Patient's speech is fluent and nonpressured. [place] Mood/Affect: Patient reports their mood is "good, affect is congruent Suicidality/Homicidality: Patient denies having any suicidal or homicidal ideation intent or plan. Perceptions: Patient denies any visual hallucinations and denies any auditory hallucinations Though content/process: There is no evidence of any delusional thought content and thought process is linear and goal-directed. Evasive, minimizing Memory and concentration: AOX3, grossly intact for the purposes of this session. Can spell "WORLD" backwards Judgment and insight: Poor IMPRESSIONS: bipolar disorder, depression Suicide attempt by overdose of psychotropic medications History of PTSD Nicotine dependence STRENGTHS/WEAKNESSES: strength is that patient is resilient. Weakness is that patient has poor judgment and is impulsive INTELLECT: average PLAN: Agree with Dr. bartholomew treatment plan -Patient is admitted under voluntary status to MHU for stabilization of psychiatric symptoms and safety. Patient has signed adult voluntary form and medication consent and is placed in patient's chart. -Medications : Prozac 60mg daily for mood and anxiety, Zyprexa 10mg po qhs for low mood/anxiety, minipress 3mg po qhs for nightmares -Ativan and Haldol PRN for agitation/aggression -Patient was informed of the risks, benefits and side effects of the medication and patient verbally consented to taking the medications. -Internal Medicine consult to perform medical evaluation and physical. -NRT -nicotine patch -SW on board for discharge planning. Encourage patient to participate in groups to work on coping skills. Miguel Dupont MD Objective - Vital Signs Vital signs: Vital Signs Temp 98.2 F 01/08/24 06:31 Pulse 58 L 01/08/24 06:31 Resp 18 01/08/24 06:31 BP 109/60 01/08/24 06:31 Pulse Ox 96 01/05/24 16:21 FiO2 Intake & Output 01/07/24 01/08/24 01/08/24 18:59 06:59 18:59 Weight 86.954 kg - Labs CBC & Chem 7: 01/06/24 07:51 01/06/24 07:51
--- NOTE | 2024-01-09 05:07 | HP ---
HISTORY AND PHYSICAL CHIEF COMPLAINTS: Depression, Ambien overdose, and suicide attempt. HISTORY OF PRESENT ILLNESS: This gentleman is transferred from medical floor for inpatient psych care for his suicidal overdose, major depression. Medically stable and alert and has no complaints. REVIEW OF SYSTEMS: He has no complaints or problems. Past medical history, family history, personal and social histories are all otherwise unremarkable. PHYSICAL EXAMINATION: VITAL SIGNS: Normal. HEENT: Head, ears, eyes, nose, mouth and throat are normal. CHEST: Clear. CARDIAC: Normal. ABDOMEN: Soft and nontender. EXTREMITIES: Normal. IMPRESSION: 1. Major depression. 2. Suicide attempt by Ambien overdose. RECOMMENDATIONS: None. MMODL / IJN: [id number] /
[2024-01-09] MEDS ORDERED: hydrOXYzine pamoate 25 MG CAP PO PRN (12:00)
--- NOTE | 2024-01-09 12:12 | P.PN ---
Progress Note - Text Progress Note Date: 01/09/24 Interval History: Patient was seen in his room, and was directable and agreeable to speak with leader writer in the office. Patient states that he is doing ok today. He states that he has been taking Ativan to help him sleep at night. [place]man told patient that he can not be discharged on Ativan, and discussed other options. Patient agreeable. At this time patient denies any suicidal or homicidal ideations, intent or plan. Patient denies any auditory, visual hallucinations and denies any paranoia or delusions. Patient denies any side effects from the medications and has been compliant with meds. MENTAL STATUS EXAM: General Appearance: Patient appears to be have several tattoos, stated age is alert, evasive and guarded. Patient appears to have fair hygiene and grooming wearing his own clothes, with fair eye contact. Behavior: Patient is calmly seated without any agitated behavior. mildly improving Speech: Patient's speech is fluent and nonpressured. [place], improving Mood/Affect: Patient reports their mood is "ok", affect is congruent improving Suicidality/Homicidality: Patient denies having any suicidal or homicidal ideation intent or plan. Perceptions: Patient denies any visual hallucinations and denies any auditory hallucinations Though content/process: There is no evidence of any delusional thought content and thought process is linear and goal-directed. Evasive, minimizing Memory and concentration: AOX3, grossly intact for the purposes of this session. Judgment and insight: Poor, mildly improving IMPRESSIONS: bipolar disorder, depression Suicide attempt by overdose of psychotropic medications History of PTSD Nicotine dependence PLAN: -Patient is admitted under voluntary status to MHU for stabilization of psychiatric symptoms and safety. -Medications : Prozac 60mg daily for mood and anxiety, increase Zyprexa 15mg po qhs for low mood/anxiety, minipress 3mg po qhs for nightmares, add visteral 50mg q8 hours prn for anxiety -Ativan and Haldol PRN for agitation/aggression -NRT -nicotine patch -SW on board for discharge planning. Encourage patient to participate in groups to work on coping skills. Discharge home tomorrow, if patient continues to improve
[2024-01-09] MEDS: OLANZapine 5 MG TAB PO SCH (20:38)
[2024-01-10 06:54] VITALS: RESP 17; TEMP 97.6
[2024-01-10 10:04] VITALS: BP 127/80; PULSE 106
--- NOTE | 2024-01-10 10:06 | P.DS ---
Providers Date of admission: 01/05/24 16:09 Expected date of discharge: 01/10/24 Attending physician: Negro Bartholomew MD Consults: 01/05/24 13:38 Consult Physician Routine Consulting Provider: Ronnie Miranda Consult Reason/Comments: H and P Do you want consulting provider notified?: Yes Primary care physician: Ronnie Miranda - Discharge Diagnosis(es) (1) Bipolar disorder with current episode depressed Current Visit: Yes Status: Acute Priority: High (2) Suicide attempt by drug overdose Current Visit: Yes Status: Acute Priority: High (3) History of posttraumatic stress disorder (PTSD) Current Visit: Yes Status: Acute Priority: Medium (4) Nicotine dependence Current Visit: Yes Status: Acute Priority: Low Hospital Course: Admission HPI: Admission note was completed by pattern chart writer "The patient presented to the hospital initially on 12/31 to the ER after an Ambien overdose. Patient apparently took 10 tablets of Ambien at once in a suicide attempt, was endorsing that he was depressed and admitted to it being a suicide attempt. Urine drug screen is positive for opiates and benzodiazepines. Patient was seen as a consult on the medical floor. As per consult note by pattern chart writer, "Patient was seen laying in the bed and agreeable to speak to pattern chart writer. He had a one-to-one sitter at his side. Patient claims that he has been feeling more depressed for "months" and states that he has a history of bipolar disorder. He also claims that he is on disability. He states that he has been living alone and feels very "lonely" and also states that he is feeling bored, endorses elevated anxiety at this time. He was fairly concrete, evasive about his condition. States that the overdose was a suicide attempt and claims that after he took it he laid down and his cousin called him and he told him what he did and then the cousin called EMS to bring him to the hospital. Patient denies any paranoia at this time, denies any problems with sleep states that his appetite is on and off. At this time patient denies any current suicidal or homicidal ideations, intent or plan. Patient denies any auditory, visual hallucinations and denies any paranoia or delusions. Patients admits to using cigarettes only, denies any other recreational drug use." Upon todays assessment, patient states that he is somewhat better. He states that his sleep is not the greatest. continues to be fairly concrete and superficial about his treatment. was agreeable to have his meds adjusted. His mood is still not great, and he is not endorsing any anxiety. He states that his appetite is fair. At this time he is denying any suicidal or homicidal ideations intent or plan. Claims that the auditory hallucinations have been improving. Denies any visual hallucinations." Hospital course: Upon admission to the unit patient was directable and agreeable to commence treatment and signed adult voluntary form. Patient was initially isolative however with time and treatment he eventually got along well with other patients on the unit and followed unit protocol. Patient was compliant with the medications and denied any side effects throughout hospital course. Patient was started on his home dose of Minipress 3 mg nightly for nightmares, Vistaril as needed for anxiety, Zyprexa was increased to 15 mg nightly for mood stabilization/insomnia, Prozac was increased to dose of 60 mg daily for mood/an xiety. Patient spoke of his stressors and engaged in therapy both group and individual. Patient was also seen by medical team for history and physical exam. Throughout the course of the hospitalization patient gradually improved with regards to mood, anxiety, depression, sleep and returned back to their baseline level of functioning. On the day of discharge patient denied any suicidal or homicidal ideations intent or plan denied any auditory or visual hallucinations. Patient endorsed wanting to live for his health, future and family. The patient denied any access to guns or weapons. Patient denied any paranoia and did not endorse any delusions. Patient does not have a significant history of substance abuse and was counseled on abstaining from all substances including alcohol and marijuana. Patient was also counseled on the medications and need for regular compliance and was encouraged to follow-up with their outpatient appointment for mental health and also for primary care. Patient denies any access to guns or weapons at home. Mental status exam: General Appearance: Patient appears to be stated age is alert, pleasant, and cooperative. Patient is in no acute distress and has improved hygiene and grooming Behavior: Patient is calmly seated without any agitated behavior. Cooperative today Speech: Patient's speech is fluent and nonpressured. Mood/Affect: Patient reports their mood is "better", affect is congruent Suicidality/Homicidality: Patient denies having any suicidal or homicidal ideation intent or plan. Perceptions: Patient denies any auditory or visual hallucinations. Though content/process: There is no evidence of any delusional thought content and thought process is linear and goal-directed. More future oriented Memory and concentration: AOX3, grossly intact for the purposes of this session. Can spell "WORLD" backwards correctly. Judgment and insight: Chronically poor, however has improved with guarded prognosis Impression: bipolar disorder, current episode depressed Suicide attempt by overdose of psychotropic medications History of PTSD Nicotine dependence Plan: -Continue with discharge today as patient has improved and stabilized ps ychiatrically and is not currently an imminent threat to himself and/or others. Patient will remain at chronically elevated risk for harm to self and/or others due to his impulsivity and mental illness. -Continue medications: Prozac 60 mg daily for mood/anxiety, Zyprexa 15 mg nightly for mood stabilization/insomnia, Vistaril 50 mg daily as needed for anxiety, Minipress 3 mg nightly for nightmares -Patient was counseled on the need for medication compliance and appropriate follow-up at mental health and also primary care for medical issues. Patient verbalized understanding and agreed. -Social work to help coordinate patient's discharge today back home. Social work also to arrange for patients follow up appointments for psychiatric care along with follow up with primary care provider. -Patient counseled on abstaining from recreational drugs and marijuana and alcohol. Was informed/educated on the adverse effects on their physical and mental health. Patient verbally agreed and understood. -Patient was instructed to return to the hospital or seek immediate medical care if their psychiatric or medical symptoms do worsen or reoccur. ] Allergies Allergy/AdvReac Type Severity Reaction Status Date / Time butorphanol from Stadol Allergy Confusion Verified 01/01/24 20:04 ketorolac from Toradol Allergy Unknown Verified 01/01/24 20:04 levofloxacin from Levaquin Allergy Vomiting Verified 01/01/24 20:04 Sulfa (Sulfonamide Allergy Nausea Verified 01/01/24 20:04 Antibiotics) Laboratory Results WBC 7.8 k/uL (3.8-10.6) 01/06/24 07:51 RBC 5.17 m/uL (4.30-5.90) 01/06/24 07:51 Hgb 15.5 gm/dL (13.0-17.5) 01/06/24 07:51 Hct 47.0 % (39.0-53.0) 01/06/24 07:51 MCV 90.9 fL (80.0-100.0) 01/06/24 07:51 MCH 29.9 pg (25.0-35.0) 01/06/24 07:51 MCHC 32.9 g/dL (31.0-37.0) 01/06/24 07:51 RDW 12.3 % (11.5-15.5) 01/06/24 07:51 Plt Count 253 k/uL (150-450) 01/06/24 07:51 MPV 6.4 01/06/24 07:51 Neutrophils % (Manual) 73 % 01/06/24 07:51 Lymphocytes % (Manual) 21 % 01/06/24 07:51 Monocytes % (Manual) 5 % 01/06/24 07:51 Eosinophils % (Manual) 1 % 01/06/24 07:51 Neutrophils # (Manual) 5.69 k/uL (1.3-7.7) 01/06/24 07:51 Lymphocytes # (Manual) 1.64 k/uL (1.0-4.8) 01/06/24 07:51 Monocytes # (Manual) 0.39 k/uL (0-1.0) 01/06/24 07:51 Eosinophils # (Manual) 0.08 k/uL (0-0.7) 01/06/24 07:51 Nucleated RBCs 0 /100 WBC (0-0) 01/06/24 07:51 Manual Slide Review Performed 01/06/24 07:51 RBC Morphology Normal 01/06/24 07:51 Sodium 133 mmol/L (137-145) L 01/06/24 07:51 Potassium 4.4 mmol/L (3.5-5.1) 01/06/24 07:51 Chloride 97 mmol/L (98-107) L 01/06/24 07:51 Carbon Dioxide 31 mmol/L (22-30) H 01/06/24 07:51 Anion Gap 5 mmol/L 01/06/24 07:51 BUN 15 mg/dL (9-20) 01/06/24 07:51 Creatinine 1.02 mg/dL (0.66-1.25) 01/06/24 07:51 Est GFR (CKD-EPI)AfAm >90 (>60 ml/min/1.73 sqM) 01/06/24 07:51 Est GFR (CKD-EPI)NonAf 81 (>60 ml/min/1.73 sqM) 01/06/24 07:51 Glucose 94 mg/dL (74-99) 01/06/24 07:[address] Glu mg/dL 120 mg/dL 01/06/24 07:51 Hemoglobin A1c 5.8 % (<=6.0) 01/06/24 07:51 Calcium 9.7 mg/dL (8.4-10.2) 01/06/24 07:51 Total Bilirubin 0.8 mg/dL (0.2-1.3) 01/06/24 07:51 AST 23 U/L (17-59) 01/06/24 07:51 ALT 15 U/L (4-49) 01/06/24 07:51 Alkaline Phosphatase 56 U/L (38-126) 01/06/24 07:51 Total Protein 6.6 g/dL (6.3-8.2) 01/06/24 07:51 Albumin 4.4 g/dL (3.5-5.0) 01/06/24 07:51 Triglycerides 132.00 mg/dL (0.00-149.00) 01/06/24 07:51 Cholesterol 173.00 mg/dL (0.00-200.00) 01/06/24 07:51 LDL Cholesterol, Calc 78.4 mg/dL (0.0-131.0) 01/06/24 07:51 VLDL Cholesterol, Calc 26.40 mg/dL (5.00-40.00) 01/06/24 07:51 HDL Cholesterol 68.20 mg/dL (40.00-60.00) H 01/06/24 07:51 Cholesterol/HDL Ratio 2.54 Ratio 01/06/24 07:51 TSH 0.663 mIU/L (0.465-4.680) 01/06/24 07:51 Vital Signs Temp 97.6 F 01/10/24 06:52 Pulse 56 L 01/10/24 06:52 Resp 17 01/10/24 06:52 BP 124/74 01/10/24 06:52 Pulse Ox 98 01/10/24 06:52 FiO2 Patient Condition at Discharge: Stable Plan - Discharge Summary Discharge Rx Participant: Yes New Discharge Prescriptions: New HYDROcodone/APAP 5-325MG [[place] 5-325] 1 each PO BID PRN tab PRN Reason: Pain Pantoprazole [Protonix] 40 mg PO AC-BRKFST tab FLUoxetine HCL [PROzac] 60 mg PO DAILY 14 Days #42 cap OLANZapine [ZyPREXA] 15 mg PO HS 14 Days #14 tablet Nicotine Gum (Polacrilex) [Nicorette] 2 mg BUCCAL Q4HR PRN 30 Days #180 pieceofgum PRN Reason: Nicotine Cravings hydrOXYzine pamoate [Vistaril] 50 mg PO DAILY PRN 14 Days #28 cap PRN Reason: Anxiety Continue lisinopriL [Zestril] 10 mg PO DAILY Ibuprofen [Motrin] 800 mg PO BID PRN PRN Reason: Pain Prazosin [Minipress] 3 mg PO HS 14 Days #42 cap Discontinued OXcarbazepine [Trileptal] 300 mg PO BID OLANZapine [ZyPREXA] 10 mg PO HS Esomeprazole Magnesium [NexIUM] 40 mg PO DAILY buPROPion XL [Wellbutrin XL] 150 mg PO DAILY FLUoxetine HCL [PROzac] 40 mg PO DAILY Discharge Medication List Ibuprofen [Motrin] 800 mg PO BID PRN 01/01/24 [History] lisinopriL [Zestril] 10 mg PO DAILY 01/01/24 [History] FLUoxetine HCL [PROzac] 60 mg PO DAILY 14 Days #42 cap 01/10/24 [Rx] HYDROcodone/APAP 5-325MG [[place] 5-325] 1 each PO BID PRN tab 01/10/24 [Rx] Nicotine Gum (Polacrilex) [Nicorette] 2 mg BUCCAL Q4HR PRN 30 Days #180 pieceofgum 01/10/24 [Rx] OLANZapine [ZyPREXA] 15 mg PO HS 14 Days #14 tablet 01/10/24 [Rx] Pantoprazole [Protonix] 40 mg PO AC-BRKFST tab 01/10/24 [Rx] Prazosin [Minipress] 3 mg PO HS 14 Days #42 cap 01/10/24 [Rx] hydrOXYzine pamoate [Vistaril] 50 mg PO DAILY PRN 14 Days #28 cap 01/10/24 [Rx] Follow up Appointment(s)/Referral(s): [facility] [Outside] - 01/13/24 3:30 pm (01/13/2024 3:30PM - 4:30PM ESSENCE GREGORY 01/20/2024 9:00AM - 10:00AM NADIR GREGORY ) Activity/Diet/Wound Care/Special Instructions: Avoid the use of street drugs and alcohol. Take all medications as prescribed. When you are in need of refills on your medications, please contact your medical provider and/or outpatient psychiatrist/provider to have this done. Please go to your scheduled outpatient appointment for aftercare treatment. If symptoms return or become worse, call the crisis line at and/or go to the nearest emergency room for evaluation. National Suicide Hotline 598 Discharge Disposition: HOME SELF-CARE
== END 2024-01-10 12:35 | disposition home or self-care (01) | DRG 885 ==
LOC: 3MHU 16:09
PROVIDERS: ADMIT Psychiatry & Neurology Psychiatry; ATTEND Psychiatry & Neurology Psychiatry
DX: F31.30 Bipolar disorder, current episode depressed, mild or moderate severity, unspecified (principal); F17.210 Nicotine dependence, cigarettes, uncomplicated; F41.9 Anxiety disorder, unspecified; F43.10 Post-traumatic stress disorder, unspecified; Z60.2 Problems related to living alone; G47.00 Insomnia, unspecified; T42.6X2A Poisoning by other antiepileptic and sedative-hypnotic drugs, intentional self-harm, initial encounter; Z56.0 Unemployment, unspecified; Z79.899 Other long term (current) drug therapy; F19.11 Other psychoactive substance abuse, in remission; Z71.51 Drug abuse counseling and surveillance of drug abuser; Z88.1 Allergy status to other antibiotic agents; Z88.2 Allergy status to sulfonamides; Z88.8 Allergy status to other drugs, medicaments and biological substances
CPT/HCPCS: 80053; 80061; 83036; 84443; 85025; 90677